=== PATIENT | female | born 1990 | race Caucasian/White ===

== ENCOUNTER 2019-07-15 11:46 | Day surgery (SDC) | payer OTHER | END 2019-07-15 15:30 | disposition home or self-care (01) | LOC: AMB-ENDOS 11:46 | DX: K57.32 Diverticulitis of large intestine without perforation or abscess without bleeding (principal); K57.30 Diverticulosis of large intestine without perforation or abscess without bleeding ==

== ENCOUNTER 2019-11-22 07:14 | Inpatient (IN) | payer OTHER ==
[~2019-11-22] VITALS: Ht 162.6 cm; Wt 65.8 kg
[2019-11-27] MEDS ORDERED: KETO10TA2 PO (10:42)
[2019-11-27] MEDS ORDERED: HYOSCYAMINE0.125 M1 SL (10:42)
== END 2019-11-27 12:25 | disposition home or self-care (01) | DRG 331 ==
LOC: SURH 11-24 07:00 → O/R 11-24 11:02 → SURG 11-24 11:02 → SURH 11-24 11:30 → O/R 11-24 11:30 → SURG 11-24 20:59
PROVIDERS: ADMIT Surgery; ATTEND Surgery
PROC: 0DJD8ZZ Inspection of Lower Intestinal Tract, Via Natural or Artificial Opening Endoscopic (ICD-10-PCS; 2019-11-24)
PROC: 0DTN4ZZ Resection of Sigmoid Colon, Percutaneous Endoscopic Approach (ICD-10-PCS; principal; 2019-11-24 07:00)
DX: K57.32 Diverticulitis of large intestine without perforation or abscess without bleeding (principal); Z20.828 Contact with and (suspected) exposure to other viral communicable diseases

== ENCOUNTER 2023-02-12 15:00 | Outpatient (CLI) | payer OTHER ==
[~2023-02-12 15:00] MED LIST: HYOSCYAMINE0.125 M1 SL; KETO10TA2 PO
== END 2023-02-12 16:56 | disposition home or self-care (01) ==
LOC: PRENATAL 15:00
PROVIDERS: ATTEND Obstetrics & Gynecology Maternal & Fetal Medicine
DX: O36.80X0 Pregnancy with inconclusive fetal viability, not applicable or unspecified (principal); Z36.9 Encounter for antenatal screening, unspecified; O09.519 Supervision of elderly primigravida, unspecified trimester; Z3A.11 11 weeks gestation of pregnancy

== ENCOUNTER 2023-04-08 13:13 | Outpatient (CLI) | payer OTHER | END 2023-04-08 13:16 | disposition home or self-care (01) | LOC: PRENATAL 13:13 | PROVIDERS: ATTEND Obstetrics & Gynecology Maternal & Fetal Medicine | DX: O35.9XX0 Maternal care for (suspected) fetal abnormality and damage, unspecified, not applicable or unspecified (principal); O35.3XX0 Maternal care for (suspected) damage to fetus from viral disease in mother, not applicable or unspecified; Z14.8 Genetic carrier of other disease; O44.00 Complete placenta previa NOS or without hemorrhage, unspecified trimester; Z3A.19 19 weeks gestation of pregnancy ==

== ENCOUNTER 2023-07-02 19:38 | Inpatient (IN) | payer OTHER ==
[~2023-07-02] VITALS: Ht 162.6 cm; Wt 74.8 kg
[2023-07-02 20:15] LABS: HEMATOCRIT 36.3 % (36.0-45.00); HEMOGLOBIN 12.3 g/dL (12.0-15.00); MEAN CORPUSCULAR HEMOGLOBIN 31.1 pg (27.00-32.0); MEAN CORPUSCULAR HGB CONC 33.8 g/dl (32.0-36.0); PLATELET COUNT 209 K/uL (150-450); RED BLOOD COUNT 3.94 M/uL (4.00-6.00); RED CELL DISTRIBUTION WIDTH 13.3 % (11.5-14.5)
[2023-07-02 20:16] LABS: PH,URINE 7.5 (5.0-8.0); URINE APPEARANCE Clear; URINE BILIRRUBIN Negative (NEGATIVE); URINE BLOOD Negative; URINE COLOR Yellow; URINE GLUCOSE Negative (NEGATIVE); URINE LEUKOCYTE Negative; URINE NITRATE Negative; URINE PROTEIN Negative (NEGATIVE); URINE UROBILINOGEN 0.2 E.U./dl
[2023-07-02 20:21] LABS: URINE BACTERIA 3.7 uL (0.0-1933); URINE EPITHELIAL CELLS 0.4 uL (0.0-38.8); URINE RBC 0.7 uL (0.0-20.8); URINE WBC 0.1 uL (0.0-23.2)
[2023-07-02] MEDS ORDERED: PRENATAL TABLE1 EAC1 PO (20:29)
[2023-07-02 20:33] LABS: INR < 0.93; PARTIAL THROMBOPLASTIN TIME 28.9 SECONDS (22.0-34.0); PROTHROMBIN TIME 9.5 SECONDS (9.0-11.5)
[2023-07-02 20:38] LABS: ALBUMIN 3.1 gm/dL (3.4-5.0); BILIRUBIN TOTAL 0.24 mg/dL (0.3-1.2); CALCIUM 9.3 mg/dL (8.5-10.1); CREATININE SERUM 0.52 mg/dL (0.55-1.02); GFR 134.19; GLOBULINA 3.4 G/DL (2.4-3.5); POTASSIUM 4.11 mEq/L (3.5-5.1); TOTAL PROTEIN 6.5 gm/dL (6.4-8.2)
[2023-07-02] MEDS ORDERED: BETAMETHASONE ACETATE,SOD PHOS 30 MG/5 ML ML ONE (20:49)
[2023-07-02] MEDS ORDERED: BETAMETHASONE ACETATE,SOD PHOS 30 MG/5 ML ML IM STA (20:58)
[2023-07-02] MEDS ORDERED: RINGERS SOLUTION,LACTATED 1,000 ML IV SCH (21:00)
[2023-07-03] MEDS ORDERED: ASPIRIN 81 MG TAB.CHEW PO SCH (09:00)
[2023-07-03] MEDS ORDERED: BETAMETHASONE ACETATE,SOD PHOS 30 MG/5 ML ML IM ONE (21:00)
[2023-07-03 21:23] LABS: URINE PROT QUANT 24HR < 5.00 MG/DL
== END 2023-07-04 10:00 | disposition home or self-care (01) | DRG 833 ==
LOC: LDR 19:38
PROVIDERS: Obstetrics & Gynecology; ADMIT Student in an Organized Health Care Education/Training Program; ATTEND Student in an Organized Health Care Education/Training Program
PROC: 4A1HXCZ Monitoring of Products of Conception, Cardiac Rate, External Approach (ICD-10-PCS; principal; 2023-07-02)
PROC: BY4FZZZ Ultrasonography of Third Trimester, Single Fetus (ICD-10-PCS; 2023-07-03)
DX: O13.3 Gestational [pregnancy-induced] hypertension without significant proteinuria, third trimester (principal); O26.843 Uterine size-date discrepancy, third trimester; O36.8130 Decreased fetal movements, third trimester, not applicable or unspecified; Z3A.31 31 weeks gestation of pregnancy; O14.93 Unspecified pre-eclampsia, third trimester; Z20.822 Contact with and (suspected) exposure to COVID-19

== ENCOUNTER 2023-08-01 14:08 | Outpatient (CLI) | payer OTHER ==
[~2023-08-01 14:08] MED LIST changes: +PRENATAL TABLE1 EAC1 PO
== END 2023-08-01 14:09 | disposition home or self-care (01) ==
LOC: PRENATAL 14:08
PROVIDERS: ATTEND Obstetrics & Gynecology Maternal & Fetal Medicine
DX: O26.849 Uterine size-date discrepancy, unspecified trimester (principal); O36.8199 Decreased fetal movements, unspecified trimester, other fetus; Z3A.36 36 weeks gestation of pregnancy

== ENCOUNTER 2023-08-27 12:48 | Outpatient (CLI) | payer OTHER | END 2023-08-27 12:49 | disposition home or self-care (01) | LOC: PRENATAL 12:48 | PROVIDERS: ATTEND Obstetrics & Gynecology Maternal & Fetal Medicine | DX: O26.849 Uterine size-date discrepancy, unspecified trimester (principal); O36.8199 Decreased fetal movements, unspecified trimester, other fetus; O41.00X0 Oligohydramnios, unspecified trimester, not applicable or unspecified; Z3A.39 39 weeks gestation of pregnancy ==